=== PATIENT | male | born 1970 | race Caucasian/White ===

== ENCOUNTER 2025-02-07 14:41 | Emergency (ER) | payer OTHER, SELFPAY ==
[2025-02-07 14:52] VITALS: BP 161/116; PULSE 82; RESP 16; TEMP 36.8; O2SAT 99
--- NOTE | 2025-02-07 15:02 | ED.URI ---
HPI - URI/Sore Throat General Chief Complaint: Upper Respiratory Infection Stated Complaint: CHEST CONGESTION Time Seen by Provider: 02/07/25 15:02 Source: patient Mode of arrival: ambulatory Limitations: no limitations History of Present Illness HPI Narrative: 54-year-old male presents with complaint of cough, chest congestion for 9 days. No chest pain. Does report some shortness of breath with exertion. Reports ?I get pneumonia so easily ?. Had fever 1 week ago. All systems reviewed and negative except as noted above. Related Data Allergies Allergy/AdvReac Type Severity Reaction Status Date / Time No Known Allergies Allergy Verified 02/07/25 14:52 Review of Systems Review of Systems: CONSTITUTIONAL: Denies fever, chills, or sweats. EYES: Denies visual changes, redness, or discharge. ENT: Denies rhinorrhea, congestion, sore throat, or otalgia. CARDIOVASCULAR: Denies chest pain, palpitations, or edema. RESPIRATORY: Reports cough and dyspnea with exertion. GASTROINTESTINAL: Denies abdominal pain, nausea, vomiting, or diarrhea. GENITOURINARY: Denies dysuria or hematuria. SKIN: Denies rash or itching. MUSCULOSKELETAL: Denies back pain, joint pain, or myalgia. NEUROLOGIC: Denies headache, numbness, or weakness. PSYCHIATRIC: Denies anxiety or depression. All other systems reviewed are negative, except as documented in HPI. PMFSH Comments At time of signature, agree with nursing past medical, surgical, social and family history. There is no relevant family history pertinent to the presenting complaint. Exam Narrative: GENERAL: This is a well-nourished, well-developed patient, in no apparent distress. HEAD: normocephalic, atraumatic. EYES: PERRL. Sclera clear/white. Vision is grossly intact. EARS: External ears normal NOSE: External nose normal NECK: Neck supple, non-tender without lymphadenopathy, masses or thyromegaly. CARDIOVASCULAR: Regular rate and rhythm without murmurs, gallops, or rubs. RESPIRATORY: Congestion, rhonchi to left lower lung field otherwise clear. Breath sounds equal bilaterally. No wheezes, rales, or rhonchi. SKIN: warm, Dry, intact with no suspicious lesions or rash, good texture and turgor. NEURO: awake, alert, and oriented to person, place and time. There were no obvious focal neurologic abnormalities. EXTREMITIES: No joint tenderness, effusion, or edema noted. Course Course Level of Care: Express Care Visit Vital Signs Vital signs: Vital Signs Temperature 36.8 C 02/07/25 14:52 Pulse Rate 82 02/07/25 14:52 Respiratory Rate 16 02/07/25 14:52 Blood Pressure 116/116 H 02/07/25 14:52 Pulse Oximetry 99 02/07/25 14:52 Temperature 36.8 C 02/07/25 14:52 Pulse Rate 82 02/07/25 14:52 Respiratory Rate 16 02/07/25 14:52 Blood Pressure 116/116 H 02/07/25 14:52 Pulse Oximetry 99 02/07/25 14:52 Reviewed MDM - URI/Sore Throat MDM Narrative Medical decision making narrative: Explain to patient that he had abnormal lung sounds to left lower lung field. Offered chest x-ray to rule out pneumonia. Patient prefers to just treat with antibiotic. Patient is well-appearing, nontoxic. No respiratory distress. Please be advised this is a medical document. It is intended for [id number] communication. It is written in medical language and may contain unfamiliar abbreviations or verbiage. Medical documents are intended to carry relevant information, facts as evident, and the clinical opinion of the practitioner at the time of the encounter. This report may have been done utilizing a voice recognition system. Attempts have been made to correct errors. However, there may be uncorrected grammatical, spelling, and recognition errors present. The file time of this note does not necessarily represent the time of service. Discharge Plan Discharge Clinical Impression: Elevated blood pressure reading Pneumonia Qualifiers: Pneumonia type: due to unspecified organism Laterality: left Lung location: lower lobe of lung Qualified Code(s): J18.9 - Pneumonia, unspecified organism Patient Disposition: Home Condition: Stable Instructions: Antibiotic Form, Pneumonia (ED) Additional Instructions: Take medications as prescribed. Take Tylenol or ibuprofen every 6-8 hours as needed for pain and fever. Drink at least 64 oz of water a day. Your blood pressure was elevated today, see your doctor in 1 week. If you are having difficulty breathing or chest pain go to the ER. Patient Language: Divehi Prescriptions: New azithromycin 250 mg tablet See Rx Instructions .ROUTE .COMPLEX Qty: 6 0RF Rx Instructions: For 250 mg dose pack: take 500 mg today (day 1), then 250 mg for 4 days (days 2-5) benzonatate 200 mg capsule 200 mg PO TID PRN (Reason: cough) Qty: 20 0RF methylprednisolone [Medrol (Christ)] 4 mg tablets,dose pack See Rx Instructions PO .COMPLEX Qty: 21 0RF Rx Instructions: orally per package directions Follow-up/Referrals: PHYSICIAN,HOSPITALIST PHYSICIAN [Primary Care Provider] - Time of Disposition: 15:07
== END 2025-02-07 15:14 | disposition home or self-care (01) ==
PROVIDERS: Emergency Provider Nurse Practitioner Family
DX: R03.0 Elevated blood-pressure reading, without diagnosis of hypertension (principal); J18.9 Pneumonia, unspecified organism
CPT/HCPCS: 99213; G0463